=== PATIENT | female | born 1980 | race Caucasian/White ===

== ENCOUNTER → 2020-10-03 19:15 | Observation (INO) ==
[2020-10-03 18:02] LABS: Basophils % 0.1 %; Eosinophils # 0.2 K/mcL (0.0-0.6); Eosinophils % 1.7 %; Hematocrit 31.4 % (35.3-44.9); Hemoglobin 10.4 g/dL (11.5-15.4); Immature Granulocytes % 0.5 % (0-4); Lymphocytes % 20.9 %; Mean Corpuscular HGB Conc 33.1 g/dL (31.6-35.5); Mean Corpuscular Hemoglobin 29.3 pg (28.0-33.3); Mean Corpuscular Volume 88.5 fL (83.0-100.0); Mean Platelet Volume 11.9 fL (9.4-12.4); Monocytes # 0.6 K/mcL (0.0-1.3); Neutrophils # 6.7 K/mcL (1.6-8.9); Platelet Count 166 K/mcL (140-400); Red Blood Count 3.55 M/mcL (3.82-4.97); Red Cell Distribution Width 13.2 % (11.5-14.5); Segmented Neutrophils % 70.8 %; White Blood Count 9.4 K/mcL (4.3-11.1)
[2020-10-03 18:15] LABS: Protein/Creatinine Ratio,Urine 0.16 mg/mg (0.00-0.20)
[2020-10-03 18:16] LABS: Alanine Aminotransferase 9 Units/L (7-52); Aspartate Amino Transferase 11 Units/L (13-39); BUN/Creatinine Ratio 9 (6-26); Blood Urea Nitrogen 7 mg/dL (6-20); Lactate Dehydrogenase 115 Units/L (140-271); Uric Acid 3.3 mg/dL (2.3-7.6); eGFR For African Americans > 60 (> 60); eGFR For Non-African Americans > 60 (> 60)
== END | disposition home or self-care (01) ==
LOC: 1NENULAB
PROVIDERS: ADMIT Obstetrics & Gynecology; ATTEND Obstetrics & Gynecology

== ENCOUNTER 2020-10-22 05:58 | Inpatient (IN) ==
[2020-10-22] MEDS ORDERED: Metoclopramide 10 MG/2 ML VIAL IVP PRN (06:08)
[2020-10-22] MEDS ORDERED: Naloxone 0.4 MG/ML INJ IVP PRN ×2 (06:08→09:33)
[2020-10-22] MEDS ORDERED: Lidocaine 1% 20 ML MDV INFILT PRN (06:08)
[2020-10-22] MEDS ORDERED: Famotidine 20 MG/2 ML VIAL IVP PRN (06:08)
[2020-10-22] MEDS ORDERED: *HR* Nalbuphine 10 MG/ML AMPUL IV PRN (06:08)
[2020-10-22] MEDS ORDERED: miSOPROStoL 25 MCG TABLET PO PRN (06:12)
[2020-10-22 06:54] LABS: Basophils % 0.1 %; Eosinophils # 0.2 K/mcL (0.0-0.6); Eosinophils % 2.7 %; Hematocrit 31.5 % (35.3-44.9); Hemoglobin 10.3 g/dL (11.5-15.4); Immature Granulocytes % 0.4 % (0-4); Lymphocytes # 1.7 K/mcL (0.6-4.6); Lymphocytes % 22.2 %; Mean Corpuscular HGB Conc 32.7 g/dL (31.6-35.5); Mean Corpuscular Hemoglobin 28.9 pg (28.0-33.3); Mean Corpuscular Volume 88.5 fL (83.0-100.0); Mean Platelet Volume 12.3 fL (9.4-12.4); Monocytes # 0.4 K/mcL (0.0-1.3); Monocytes % 4.8 %; Neutrophils # 5.4 K/mcL (1.6-8.9); Platelet Count 156 K/mcL (140-400); Red Blood Count 3.56 M/mcL (3.82-4.97); Red Cell Distribution Width 13.5 % (11.5-14.5); Segmented Neutrophils % 69.8 %; White Blood Count 7.8 K/mcL (4.3-11.1)
[2020-10-22 07:11] LABS: Alanine Aminotransferase 12 Units/L (7-52); Aspartate Amino Transferase 16 Units/L (13-39); BUN/Creatinine Ratio 11 (6-26); Blood Urea Nitrogen 8 mg/dL (6-20); Glucose 119 mg/dL (70-105); Lactate Dehydrogenase 109 Units/L (140-271); Uric Acid 4.4 mg/dL (2.3-7.6); eGFR For African Americans > 60 (> 60); eGFR For Non-African Americans > 60 (> 60)
[2020-10-22 07:23] LABS: Influenza A PCR Negative (Negative); Influenza B PCR Negative (Negative); Resp. Syncytial Virus PCR Negative (Negative)
[2020-10-22 07:26] LABS: SARS-CoV-2 by PCR (In House) Negative (Negative)
[2020-10-22 08:30] LABS: Amphetamine Screen,Urine Negative ng/mL (Cutoff=1000); Barbiturate Screen,Urine Negative ng/mL (Cutoff=200); Benzodiazepines Screen,Urine Negative ng/mL (Cutoff=200); Cannabinoid Screen,Urine Negative ng/mL (Cutoff = 50); Cocaine Screen,Urine Negative ng/mL (Cutoff= 300); Creatinine,Urine 114 mg/dL; Opiate Screen,Urine Negative ng/mL (Cutoff=300); Phencyclidine Screen,Urine Negative ng/mL (Cutoff=25); Protein/Creatinine Ratio,Urine 0.22 mg/mg (0.00-0.20)
[2020-10-22] MEDS ORDERED: *HR* Labetalol 20 MG/4 ML SYRINGE IVP ONE ×2 (08:31)
[2020-10-22] MEDS: Ringers Solution, Lactated 1,000 ML IVC SCH ×3 (08:44→18:27)
[2020-10-22] MEDS ORDERED: EPHEDrine 50 MG/ML VIAL IVP PRN (09:33)
[2020-10-22] MEDS ORDERED: Ropivacaine/PF 0.2% 20 ML VIAL EP ONE (09:33)
[2020-10-22] MEDS ORDERED: Ondansetron 4 MG/2 ML VIAL IVP PRN (09:33)
[2020-10-22] MEDS ORDERED: *HR* FentaNYL (PF) 100 MCG/2 ML VIAL EP ONE (09:33)
[2020-10-22] MEDS ORDERED: Oxytocin 20 units/ LR 1000 mL 20 UNIT/1,000 ML BAG IVC SCH (12:00)
[2020-10-22] MEDS: Epidural Premix (fent/bupiv) 110 ML EP SCH ×2 (12:02→18:53)
[2020-10-22] MEDS ORDERED: Oxytocin 20 units/ LR 1000 mL 20 UNIT/1,000 ML BAG IVC ONE (12:11)
[2020-10-22 14:53] LABS: Protein/Creatinine Ratio,Urine 0.19 mg/mg (0.00-0.20)
[2020-10-22] MEDS ORDERED: Acetaminophen 325 MG TABLET PO ONE (18:30)
[2020-10-22] MEDS ORDERED: Ropivacaine/PF 0.2% 20 ML VIAL ONE (19:23)
[2020-10-23] MEDS ORDERED: Acetaminophen 325 MG TABLET PO SCH (02:10)
[2020-10-23] MEDS ORDERED: Benzocaine/Menthol 56 GM AEROSOL SPRAY TP PRN (02:10)
[2020-10-23] MEDS ORDERED: Ibuprofen 600 MG TABLET PO SCH (02:10)
[2020-10-23] MEDS ORDERED: Ondansetron ODT 4 MG TAB.RAPDIS SL PRN (02:10)
[2020-10-23] MEDS ORDERED: *HR* HYDROcodone/Acet 5/325 mg TABLET PO PRN (02:10)
[2020-10-23] MEDS ORDERED: Oxytocin 20 units/ LR 1000 mL 20 UNIT/1,000 ML BAG IVC SCH (02:10)
[2020-10-23] MEDS ORDERED: Lanolin 7 G OINT...G. TP PRN (02:10)
[2020-10-23 03:12] VITALS: O2SAT 97
[2020-10-23] MEDS ORDERED: *HR* FentaNYL (PF) 100 MCG/2 ML VIAL ONE (04:07)
[2020-10-23] MEDS ORDERED: Ropivacaine/PF 0.2% 20 ML VIAL ONE (04:07)
[2020-10-23 04:11] LABS: Basophils % 0.1 %; Eosinophils % 0.2 %; Hematocrit 24.7 % (35.3-44.9); Immature Granulocytes % 0.4 % (0-4); Lymphocytes # 0.8 K/mcL (0.6-4.6); Lymphocytes % 4.8 %; Mean Corpuscular Hemoglobin 28.5 pg (28.0-33.3); Mean Corpuscular Volume 89.2 fL (83.0-100.0); Mean Platelet Volume 12.4 fL (9.4-12.4); Monocytes # 0.7 K/mcL (0.0-1.3); Monocytes % 4.6 %; Neutrophils # 14.5 K/mcL (1.6-8.9); Platelet Count 146 K/mcL (140-400); Red Blood Count 2.77 M/mcL (3.82-4.97); Red Cell Distribution Width 13.3 % (11.5-14.5); Segmented Neutrophils % 89.9 %
[2020-10-23 04:14] LABS: White Blood Count 16.1 K/mcL (4.3-11.1)
[2020-10-23 04:15] LABS: Hemoglobin 7.9 g/dL (11.5-15.4)
[2020-10-23] MEDS ORDERED: Prenatal Vit/FA 1 EACH TABLET PO SCH (09:00)
[2020-10-23] MEDS ORDERED: NIFEdipine XL (24 HR) 30 MG TAB.ER.24 PO SCH (09:00)
[2020-10-23 09:36] VITALS: PULSE 68; TEMP 98.1
[2020-10-23 11:33] VITALS: BP 135/80
== END 2020-10-23 11:40 | disposition home or self-care (01) | DRG 807 ==
LOC: 1NENULAB 05:58 → 1NENUOBS 10-23 02:12
PROVIDERS: ADMIT Advanced Practice Midwife; ATTEND Advanced Practice Midwife